=== PATIENT | male | born 1955 | race African-American/Black ===

== ENCOUNTER 2016-11-21 12:51 | Emergency (ER) | payer MEDICARE ==
[2016-11-21 13:48] LABS: BASOPHILS 0.4 % (0.0-2.0); EOSINOPHILS 2.5 % (0-7); HEMATOCRIT 40.8 % (42.0-54.0); HEMOGLOBIN 14.5 g/dL (13.5-17.5); IMMATURE GRANULOCYTES 0.2 % (0-5); LYMPHOCYTES 45.5 % (15-50); MCH 29.4 pg (26.0-34.0); MCHC 35.5 g/dL (31.0-37.0); MCV 82.6 fL (80.0-100.0); MEAN PLATELET VOLUME 8.7 fL (7.4-10.4); MONOCYTES 5.7 % (2-11); NEUTROPHILS 45.7 % (40-80); PLATELET COUNT 234 10x3/uL (130-400); RBC 4.94 10x6/uL (4.20-6.10); RDW 12.9 % (11.5-14.5); WBC 4.8 10x3/uL (4.8-10.8)
[2016-11-21 13:58] LABS: APTT 25.2 SECONDS (22.8-39.4); INR 1.26 (0.85-1.17); PROTIME 15.6 SECONDS (11.6-15.0)
[2016-11-21 13:59] LABS: D-DIMER-QUANTITATIVE 0.47 ug/mLFEU (0.20-0.54)
[2016-11-21 14:16] LABS: ALKALINE PHOSPHATASE 73 U/L (46-116); ALT (SGPT) 19 U/L (10-68); BILIRUBIN - TOTAL 0.41 mg/dL (0.2-1.3); CALC OSMOLALITY 278 mosm/kg (275-300); CALCIUM 8.8 mg/dL (8.5-10.1); CARBON DIOXIDE 28.1 mmol/L (21.0-32.0); CHLORIDE - SERUM 101 mmol/L (98-107); GLUCOSE 210 mg/dL (74-106); POTASSIUM - SERUM 4.1 mmol/L (3.5-5.1); PROTEIN - SERUM 7.9 g/dL (6.4-8.2); SODIUM 137 mmol/L (136-145); UREA NITROGEN 9 mg/dL (7-18); eGFR NON AFRICAN AMERICAN 80 mL/min (90-120)
[2016-11-21 14:26] LABS: CKMB 0.6 U/L (0.0-3.6); CREATINE KINASE 86 UL (21-232)
[2016-11-21 14:28] LABS: TROPONIN-I < 0.017 ng/mL (0.000-0.060)
== END 2016-11-21 15:29 | disposition home or self-care (01) ==
LOC: D.ER 12:51
PROVIDERS: Emergency Medicine; Nurse Practitioner Acute Care
DX: R07.9 Chest pain, unspecified (principal); I10 Essential (primary) hypertension; C61 Malignant neoplasm of prostate